=== PATIENT | male | born 1945 | race Caucasian/White ===

== ENCOUNTER 2017-08-27 16:48 | Inpatient (IN) | payer MEDICARE, OTHER ==
[~2017-08-27] VITALS: Ht 165.1 cm; Wt 56.2 kg
--- NOTE | 2017-08-27 17:06 | NUR ---
PT JAVED FROM [facility], PER REPORT, PT IS C/O DIFFUSE ABDOMINAL PAIN W/ NAUSEA AND DIARRHEA. 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 PT IS AAO, DENIES VOMITING. AWAITING MD VIRGEN.
--- NOTE | 2017-08-27 17:14 | NUR ---
DR GENTILE AT BEDSIDE FOR EVAL.
[2017-08-27] MEDS ORDERED: IV NS 0.9% 500 ML BAG IV ONE ×2 (17:30→18:30)
[2017-08-27] MEDS ORDERED: AMIN30LI4 PO (17:35)
[2017-08-27] MEDS ORDERED: ALFU10TA10 PO (17:35)
[2017-08-27] MEDS ORDERED: CELE200C PO (17:35)
[2017-08-27] MEDS ORDERED: DESI10TA3 PO (17:35)
[2017-08-27] MEDS ORDERED: ASPI81TA2 PO (17:35)
[2017-08-27] MEDS ORDERED: LORA2TAB PO (17:35)
[2017-08-27] MEDS ORDERED: BIMA2.5D5 EACHEYE (17:35)
[2017-08-27] MEDS ORDERED: ERGO50003 PO (17:35)
[2017-08-27] MEDS ORDERED: DIPH1TAB PO (17:35)
[2017-08-27] MEDS ORDERED: POLY15DR40 RIGHTEYE (17:35)
[2017-08-27] MEDS ORDERED: MULT-659 PO (17:35)
[2017-08-27] MEDS ORDERED: CALC-108 PO (17:35)
[2017-08-27] MEDS ORDERED: CETI-232 PO (17:35)
[2017-08-27] MEDS ORDERED: DIPH30CR TP (17:35)
[2017-08-27] MEDS ORDERED: FOLI1TAB16 PO (17:35)
[2017-08-27] MEDS ORDERED: LORA1TAB PO (17:35)
[2017-08-27] MEDS ORDERED: TRAM50TA2 PO (17:35)
[2017-08-27 18:02] LABS: BASOPHILS % (AUTO) 0.2 % (0.0-2.0); EOSINOPHILS % (AUTO) 0.1 % (0.0-6.0); HEMATOCRIT 30 % (39-51); HEMOGLOBIN 9.9 g/dL (13.5-17.5); LYMPHOCYTES # (AUTO) 1.8 /CMM (0.8-4.8); LYMPHOCYTES % (AUTO) 10.7 % (20.0-44.0); MEAN CORPUSCULAR HEMOGLOBIN 30 PG (26.0-33.0); MEAN CORPUSCULAR HGB CONC 33 g/dl (31.0-36.0); MEAN CORPUSCULAR VOLUME 90 fL (80-96); MONOCYTES # (AUTO) 0.7 /CMM (0.1-1.30); MONOCYTES % (AUTO) 3.9 % (2.0-12.0); NEUTROPHILS # (AUTO) 14.3 /CMM (1.8-8.9); NEUTROPHILS % (AUTO) 85.1 % (43.0-81.0); PLATELET COUNT (AUTO) 190 /CMM (150-450); RDW COEFFICIENT OF VARIATION 14.4 (11.5-15.0); RED BLOOD CELL COUNT(AUTO) 3.34 MIL/uL (4.5-6.0); WHITE BLOOD COUNT (AUTO) 16.8 K/uL (4.3-11.0)
[2017-08-27 18:12] LABS: CALCIUM, SERUM 7.3 mg/dL (8.5-10.1); CARBON DIOXIDE 24 mmol/L (21-32); CHLORIDE 105 mmol/L (98-107); GLUCOSE 126 mg/dL (74-106); POTASSIUM 3.8 mmol/L (3.5-5.1); SODIUM SERUM 133 mmol/L (136-145); UREA NITROGEN, BLOOD 44 mg/dL (7-18)
[2017-08-27 18:16] LABS: INR 1.33 (0.87-1.13); PROTHROMBIN TIME 13.8 SECS (9.5-12.7)
[2017-08-27 18:18] LABS: ALANINE AMINOTRANSFERASE 9 U/L (12-78); ALBUMIN 1.7 g/dL (3.4-5.0); ALKALINE PHOSPHATASE 58 U/L (46-116); ASPARTATE AMINOTRANSFERASE 24 U/L (15-37); BILIRUBIN,DIRECT 0.2 mg/dL (0.0-0.2); BILIRUBIN,TOTAL 0.6 mg/dL (0.2-1.0); TOTAL PROTEIN, SERUM 4.6 g/dL (6.4-8.2)
[2017-08-27] MEDS ORDERED: PANTOPRAZOLE 80 MG in IV NS 0.9% 500 ML IV ONE (18:30)
--- NOTE | 2017-08-27 18:32 | NUR ---
PT TO RADIOLOGY FOR ABDOMINAL CT SCAN VIA [facility].
[2017-08-27] MEDS ORDERED: LEVOFLOXACIN 750 MG /D5W 150ML 150 ML IV ONE ×2 (19:00→19:08)
[2017-08-27] MEDS ORDERED: METRONIDAZOLE 500MG/ NS 100ML 100 ML IV ONE ×2 (19:00→19:08)
--- NOTE | 2017-08-27 19:16 | NUR ---
CALLED [facility] [phone] .... DR[address] BRYANT IS [employer] PLANT MAINTENANCE CONSULTANT WILL BE PAGED.
[2017-08-27] MEDS ORDERED: TRAMADOL HCL 50 MG TABLET PO ONE (20:00)
[2017-08-27] MEDS ORDERED: TRAMADOL HCL 50 MG TABLET ONE (20:37)
--- NOTE | 2017-08-27 20:40 | NUR ---
REPORT GIVEN TO PEDRO. PT AWAITING TRANSFER TO FLOOR.
--- NOTE | 2017-08-27 20:45 | NUR ---
SHALA RN INITIAL NOTE RECEIVED PT VIA GURNEY. PT TRANSFERRED SAFELY TO BED. CAREGIVER AT BEDSIDE. A/O X3 AND ABLE TO VERBALIZE NEEDS. ORIENTED PT TO ROOM ENVIRONMENT. ON ROOM AIR AND SATURATING 99%. BREATHING EVEN, REGULAR AND UNLABORED. LUNGS, HEART AND BOWEL SOUNDS AUSCULTATED. TELE- SINUS TACH 108. FULL BODY ASSESSMENT PERFORMED. PT C/O 06/01 GENERALIZED PAIN. NPO EXCEPT MEDS. WILL CONTINUE TO MONITOR AND MANAGE PAIN WITH MEDS, REPOSITIONING AND REORIENTING PT. ORDERS RECEIVED PER ADMITTING DR.SORA BRYANT, NOTED AND CARRIED OUT. IV LEFT IJ #20 CLEAN, PATENT, INTACT AND RUNNING FLUIDS. WILL CONTINUE TO MONITOR.
[2017-08-27] MEDS ORDERED: MORPHINE SULFATE INJ 2 MG/ML DISP.SYRIN IM PRN (22:00)
[2017-08-27] MEDS ORDERED: ONDANSETRON HCL/PF 4 MG/2 ML VIAL IV PRN (22:00)
[2017-08-27] MEDS ORDERED: LEVOFLOXACIN 500 MG /D5W 100ML 500 MG in PREMIX 1 EA IV SCH (22:00)
[2017-08-27] MEDS: METRONIDAZOLE 500MG/ NS 100ML 500 MG in PREMIX 1 EA IV SCH (22:00)
[2017-08-27] MEDS ORDERED: ACETAMINOPHEN 325 MG TABLET ONE (22:42)
[2017-08-27] MEDS: ACETAMINOPHEN 325 MG TABLET PO PRN (22:43)
[2017-08-27] MEDS: IV NS 0.9% 1,000 ML IV PRN (22:44)
[2017-08-28] VITALS: BP 92/54
[2017-08-28] MEDS: ACETAMINOPHEN 325 MG TABLET PO PRN (00:09)
[2017-08-28] MEDS: IV NS 0.9% 1,000 ML IV PRN ×2 (00:38→14:21)
[2017-08-28] MEDS ORDERED: TRAMADOL HCL 50 MG TABLET ONE (02:42)
[2017-08-28] MEDS: TRAMADOL HCL 50 MG TABLET PO PRN ×3 (02:45→21:20)
[2017-08-28 04:00] VITALS: BP 124/72
[2017-08-28] MEDS ORDERED: METRONIDAZOLE 500MG/ NS 100ML 100 ML IV ONE (04:22)
--- NOTE | 2017-08-28 05:07 | NUR ---
SHALA RN NOTE 2330 -SPOKE WITH DR MIKAYLA BRYANT AND RECEIVED ORDER FOR CENTRAL LINE INSERTION D/T NOT BEING ABLE TO INSERT A MIDLINE. CONSENT OBTAINED BY JAS THOMPSON(POA) WHO'S AT BEDSIDE WITH PT. CENTRAL LINE SUCCESSFULLY INSERTED IN THE R FEMORAL TLC. PT TOLERATED PROCEDURE WELL. 0030 - PT BP 85/55, 89/61. PUT PT IN [place] WITHOUT ANY CHANGE. SPOKE WITH DR. MIKAYLA BRYANT WHO ORDERED 1 LITER NS BOLUS X1 NOW. 0130 S/P IV BOLUS BP 89/52, 92/55, PT KEPT IN [place]. 0300 BP 96/56 0315 TRAMADOL 50MG GIVEN PER PT REQUEST. PAIN LEVEL 07/02. 0400 BP 124/72 ON LEFT THIGH. 0500 BP 126/63 ON LEFT THIGH WILL CONTINUE TO MONITOR PT.
[2017-08-28] MEDS ORDERED: MORPHINE SULFATE INJ 2 MG/ML DISP.SYRIN ONE (05:36)
[2017-08-28] MEDS: METRONIDAZOLE 500MG/ NS 100ML 500 MG in PREMIX 1 EA IV SCH ×3 (05:38→18:41)
[2017-08-28 06:25] LABS: HEMATOCRIT 23 % (39-51); HEMOGLOBIN 7.6 g/dL (13.5-17.5); LYMPHOCYTES # (AUTO) 1.1 /CMM (0.8-4.8); LYMPHOCYTES % (AUTO) 6.6 % (20.0-44.0); MEAN CORPUSCULAR HEMOGLOBIN 30 PG (26.0-33.0); MEAN CORPUSCULAR HGB CONC 34 g/dl (31.0-36.0); MEAN CORPUSCULAR VOLUME 90 fL (80-96); MONOCYTES # (AUTO) 0.3 /CMM (0.1-1.30); MONOCYTES % (AUTO) 1.8 % (2.0-12.0); NEUTROPHILS # (AUTO) 15.3 /CMM (1.8-8.9); NEUTROPHILS % (AUTO) 91.6 % (43.0-81.0); PLATELET COUNT (AUTO) 160 /CMM (150-450); RDW COEFFICIENT OF VARIATION 15.7 (11.5-15.0); RED BLOOD CELL COUNT(AUTO) 2.51 MIL/uL (4.5-6.0); WHITE BLOOD COUNT (AUTO) 16.7 K/uL (4.3-11.0)
[2017-08-28 06:37] LABS: CALCIUM, SERUM 6.5 mg/dL (8.5-10.1); CARBON DIOXIDE 20 mmol/L (21-32); CHLORIDE 110 mmol/L (98-107); CREATININE 0.8 mg/dL (0.6-1.3); GLUCOSE 94 mg/dL (74-106); POTASSIUM 3.5 mmol/L (3.5-5.1); SODIUM SERUM 137 mmol/L (136-145); UREA NITROGEN, BLOOD 36 mg/dL (7-18)
--- NOTE | 2017-08-28 07:37 | NUR ---
RN CLOSING NOTE PT REMAINS IN NO ACUTE DISTRESS IN BED. PT DID NOT HAVE ANY SIGNIFICANT CHANGE IN CONDITION DURING SHIFT. PT WAS C/O GENERALIZED PAIN @ 8/10. PAIN MANAGEMENT INITIATED AND PT HAS DECREASED TO 3/10. ALL NEEDS ATTENDED TO, ALL SAFETY MEASURES IN PLACE, AND PT KEPT CLEAN AND DRY. WILL ENDORSE TO AM RN FOR MEDHAT.
[2017-08-28 08:00] VITALS: BP 125/66
--- NOTE | 2017-08-28 08:00 | NUR ---
RN SHALA INITIAL NOTE RECEIVED PATIENT A/O X3 AND ABLE TO VERBALIZE NEEDS. PT ON ROOM AIR AND SATURATING 98%. BREATHING EVEN, REGULAR AND UNLABORED. LUNGS, HEART AND BOWEL SOUNDS AUSCULTATED. TELE- SINUS RHYTHM, FULL BODY ASSESSMENT PERFORMED. PT C/O 08/02 GENERALIZED PAIN ABDOMINAL DISTENTION NOTED . NPO EXCEPT MEDS. RN WILL CONTINUE TO MONITOR THROUGHOUT THE DAY ALONG WITH MANAGING PAIN .
[2017-08-28] MEDS ORDERED: diphenhydrAMINE HCL/ZINC ACET CREAM 28.3 GM TUBE TP PRN (09:30)
[2017-08-28] MEDS ORDERED: DIPHENOXYLATE HCL/ATROP SULF 1 UDTAB TABLET PO PRN (09:30)
[2017-08-28] MEDS ORDERED: TRAMADOL HCL 50 MG TABLET PO PRN (09:30)
--- NOTE | 2017-08-28 09:30 | NUR ---
RN NOTE DR.SORA BRYANT [place] PER FAMILY REQUEST, REQUESTING UPDATE AND PLAN OF CARE RN EXPLAINED THE PATIENTS PLAN OF CARE AWAITING RETURN PHONE CALL
[2017-08-28] MEDS ORDERED: ASPIRIN 81 MG TAB.CHEW PO SCH (09:35)
[2017-08-28] MEDS: PROSOURCE / PROSTAT (PYXIS) 30 ML UDC PO SCH ×2 (09:39→18:40)
[2017-08-28] MEDS ORDERED: CELECOXIB 100 MG CAPSULE PO SCH (09:40)
[2017-08-28] MEDS: MULTIVITAMINS,THERAGRAN 1 UDTAB TABLET PO SCH (09:43)
[2017-08-28] MEDS: cetrizine 10 MG TABLET PO SCH (10:03)
[2017-08-28] MEDS: CALCIUM CARB 600MG /VIT D 1 EACH TABLET PO SCH (10:03)
[2017-08-28] MEDS: LORAZEPAM 1 MG TABLET PO PRN (10:04)
[2017-08-28] MEDS: MORPHINE SULFATE INJ 2 MG/ML DISP.SYRIN IV PRN ×3 (10:05→18:42)
[2017-08-28] MEDS: FOLIC ACID 1 MG TABLET PO SCH (10:06)
[2017-08-28] MEDS: POLYVINYL ALCOHOL 15 ML BOTTLE RIGHTEYE SCH ×2 (10:07→18:41)
--- NOTE | 2017-08-28 10:30 | NUR ---
RN NOTE DR.SORA ANNETTE RAHMAN PER FAMILY REQUEST X2 , REQUESTING UPDATE AND PLAN OF CARE RN EXPLAINED THE PATIENTS PLAN OF CARE AWAITING RETURN PHONE CALL
[2017-08-28 12:00] VITALS: BP 129/65
[2017-08-28] MEDS ORDERED: LEVOFLOXACIN 500 MG /D5W 100ML 500 MG in PREMIX 1 EA IV SCH (12:00)
--- NOTE | 2017-08-28 12:00 | NUR ---
RN NOTE PATIENT HAD NOTICEABLE BLOODY STOOL MD HAINES NOTIFIED , ACKNOWLEDGED LOWER GI BLEED PRN TRANSFUSION IF NEED RN WILL CONTINUE TO FOLLOW
--- NOTE | 2017-08-28 14:23 | NUR ---
RN NOTE COMPUTER SCANNER NOT WORKING PATIENT PAIN MEDICATION ADMINISTERED DUE TO PAIN LEVEL AT A 9-10 GENERALIZED. MEDICATION GIVEN AND FLUSHED WITH 5 CC OF NORMAL SALINE
[2017-08-28 14:27] LABS: HEMOGLOBIN 7.7 g/dL (13.5-17.5)
[2017-08-28 16:00] VITALS: BP 117/65
[2017-08-28] MEDS: PANTOPRAZOLE 40 MG VIAL IV SCH (18:41)
--- NOTE | 2017-08-28 18:55 | NUR ---
RN CLOSING SHALA NOTE PT REMAINS IN NO ACUTE DISTRESS NO SOB NOTED .NO HAVE ANY SIGNIFICANT CHANGE IN CONDITION DURING SHIFT. PT C/O GENERALIZED PAIN @ 9-09/01. PAIN MANAGEMENT FOLLOWED THROUGHOUT THE DAY VIKAS EFFECTIVENESS. ALL NEEDS ATTENDED TO, ALL SAFETY MEASURES IN PLACE, PT KEPT CLEAN AND DRY IN CONTINENT DIAPER CHANGED X 3. WILL ENDORSE TO PM RN FOR CONTINUATION OF CARE.
[2017-08-28 20:00] VITALS: BP 114/59
--- NOTE | 2017-08-28 20:00 | NUR ---
SHALA RN NOTES: RECEIVED PT. IN BED ALERT AND ORIENTED X 3 RESPONSIVE. ABLE TO MAKE NEEDS KNOWN. ON TELE MONITOR ST 112. PATIENT ON RA W/ O2 SAT 95%. NO SOB NOTED. NOT IN ANY ACUTE DISTRESS. BREATHING EVEN AND UNLABORED. C/O PAIN GENERALIZED PAIN W/ PRN MEDS GIVEN. W/ IVF NS AT 100 CC/ HR INFUSING WELL W/ NO S/S OF INFECTION OR INFILTRATION NOTED. ALL NEEDS ATTENDED. PATIENT REMAINS ON NPO EXCEPT MEDS. DUE MEDS GIVEN ORDERED. TURNED AND REPOSTIONED Q 2 HRS. CALL LIGHT W/ REACH. SAFETY PRECAUTIONS MAINTAINED. WILL CONTINUE TO MONITOR.
[2017-08-28] MEDS: DESIPRAMINE HCL 10 MG TABLET PO SCH (21:10)
[2017-08-28] MEDS: LEVOFLOXACIN 500 MG /D5W 100ML 500 MG in PREMIX 1 EA IV SCH (21:10)
[2017-08-28] MEDS: LATANOPROST EYE DROP 0.005% 2.5 ML BOTTLE EACHEYE SCH (21:11)
--- NOTE | 2017-08-28 21:32 | NUR ---
patient resides at [facility] [phone], she is alert, requires assistance with adl's. Current plan is to dc back to SNF once discharge. Addendum: 08/28/17 at 2133 by KOLE BONILLA RN Amended: Links added.
[2017-08-28] MEDS ORDERED: BIMATOPROST 2.5 ML DROPS OP SCH (22:00)
[2017-08-29] VITALS (7 sets, daily range): BP systolic 81–124; BP diastolic 50–66
--- NOTE | 2017-08-29 | NUR ---
SHALA RN NOTES: PATIENT RESTING IN BED COMFORTABLE. NO SOB NOTED. NOT IN ANY ACUTE DISTRESS NOTED. CALL LIGHT W/ IN REACH. COUSIN ELAINA CALLED AND UNDATED PT.'S CURRENT CONDITION. WILL CONTINUE TO MONITOR. V/S STABLE AFEBRILE.
[2017-08-29] MEDS: METRONIDAZOLE 500MG/ NS 100ML 500 MG in PREMIX 1 EA IV SCH ×4 (00:35→18:16)
[2017-08-29] MEDS: MORPHINE SULFATE INJ 2 MG/ML DISP.SYRIN IV PRN ×3 (05:18→20:21)
[2017-08-29] MEDS: IV NS 0.9% 1,000 ML IV PRN ×2 (05:37→18:17)
--- NOTE | 2017-08-29 06:34 | NUR ---
SHALA RN NOTES: PATIENT IN BED W/ NO SOB OR ANY ACUTE DISTRESS NOTED. REMAINS NPO EXCEPT MEDS. NO ACTIVE BLEEDING NOTED. V/S STABLE. AFEBRILE. REMAIN ON SALINE HYDRATION. ENDORSE TO MORNING SHIFT FOR CONTINUITY OF CARE.
[2017-08-29 07:33] LABS: HEMATOCRIT 25 % (39-51); HEMOGLOBIN 8.2 g/dL (13.5-17.5); LYMPHOCYTES # (AUTO) 1.3 /CMM (0.8-4.8); LYMPHOCYTES % (AUTO) 6.7 % (20.0-44.0); MEAN CORPUSCULAR HEMOGLOBIN 30 PG (26.0-33.0); MEAN CORPUSCULAR HGB CONC 33 g/dl (31.0-36.0); MEAN CORPUSCULAR VOLUME 90 fL (80-96); MONOCYTES # (AUTO) 0.4 /CMM (0.1-1.30); MONOCYTES % (AUTO) 1.9 % (2.0-12.0); NEUTROPHILS # (AUTO) 18.1 /CMM (1.8-8.9); NEUTROPHILS % (AUTO) 91.4 % (43.0-81.0); PLATELET COUNT (AUTO) 168 /CMM (150-450); RDW COEFFICIENT OF VARIATION 16.5 (11.5-15.0); RED BLOOD CELL COUNT(AUTO) 2.74 MIL/uL (4.5-6.0); WHITE BLOOD COUNT (AUTO) 19.8 K/uL (4.3-11.0)
[2017-08-29 07:44] LABS: INR 1.92 (0.87-1.13); PROTHROMBIN TIME 20.1 SECS (9.5-12.7)
[2017-08-29 07:55] LABS: CALCIUM, SERUM 6.7 mg/dL (8.5-10.1); CARBON DIOXIDE 18 mmol/L (21-32); CHLORIDE 113 mmol/L (98-107); CREATININE 0.8 mg/dL (0.6-1.3); GLUCOSE 79 mg/dL (74-106); MAGNESIUM 1.5 mg/dL (1.8-2.4); PHOSPHORUS 2.6 mg/dL (2.5-4.9); POTASSIUM 3.6 mmol/L (3.5-5.1); SODIUM SERUM 142 mmol/L (136-145); UREA NITROGEN, BLOOD 33 mg/dL (7-18)
[2017-08-29] MEDS ORDERED: ERGOCALCIFEROL (VITAMIN D 2) 50,000 UNIT CAPSULE PO SCH (09:00)
[2017-08-29] MEDS ORDERED: ALFUZOSIN 10 MG PO SCH (09:00)
[2017-08-29] MEDS: PANTOPRAZOLE 40 MG VIAL IV SCH ×2 (09:14→17:19)
[2017-08-29] MEDS: CALCIUM CARB 600MG /VIT D 1 EACH TABLET PO SCH (09:15)
[2017-08-29] MEDS: FOLIC ACID 1 MG TABLET PO SCH (09:15)
[2017-08-29] MEDS: cetrizine 10 MG TABLET PO SCH (09:15)
[2017-08-29] MEDS: MULTIVITAMINS,THERAGRAN 1 UDTAB TABLET PO SCH (09:15)
[2017-08-29] MEDS: POLYVINYL ALCOHOL 15 ML BOTTLE RIGHTEYE SCH ×2 (09:15→17:19)
[2017-08-29] MEDS: PROSOURCE / PROSTAT (PYXIS) 30 ML UDC PO SCH ×2 (09:16→17:19)
[2017-08-29] MEDS: ACETAMINOPHEN 325 MG TABLET PO PRN (12:21)
--- NOTE | 2017-08-29 14:00 | NUR ---
RN CLOSING NOTE REPORT GIVEN TO NURSE RUSH FOR TRANSFER OF CARE
[2017-08-29] MEDS: Magnesium 1GM/D5W 100ML PREMIX 100 ML IV SCH ×2 (14:16→15:40)
--- NOTE | 2017-08-29 15:03 | NUR ---
RN NOTES RECEIVED PT FROM KAIN IN STABLE CONDITION. A&OX3, ON ROOM AIR NO SOB OR DISTRESS NOTED, SINUS TACH ON THE MONITOR HR 110. R FEMORAL CENTRAL LINE DRESSING DRY AND INTACT WITH IVF RUNNING AT 100ML/HR. BED LOCKED AND IN LOWEST POSITION, CALL LIGHT WITHIN REACH, WILL CONT TO MONITOR.
--- NOTE | 2017-08-29 18:47 | NUR ---
RN NOTES PT RESTING IN BED WITH CAREGIVER AT BEDSIDE. NO SOB OR DISTRESS NOTED. IV ANITBOTICS RUNNING. NO SIGNIFICANT CHANGES THROUGHOUT THE SHIFT. PT CLEANED, TURNED AND REPOSITIONED. BED LOCKED AND IN LOWEST POSITION, CALL LIGHT WITHIN REACH, SIDE RAILS UPX3, WILL ENDORSE TO ONCOMING SHIFT.
--- NOTE | 2017-08-29 21:08 | NUR ---
RN NOTES RECEIVED PATIENT AWAKE IN BED WITH SITTER AT BEDSIDE. ALERT AND ORIENTED. VERBALLY ABLE TO COMMUNICATE NEEDS. COMPLAINT OF ABDOMINAL PAIN 08/02, MORPHINE 2MG ADMINISTERED WITH NO ADVERSE EFFECT NOTED. NON AMBULATORY, ON ROOM AIR. RIGHT FEMORAL CENTRA LINE PATENT WITH NS @100ML/HR TOLERATING WELL. NO RESPIRATORY DISTRESS NOTED. INCONTINENT OF BOWEL AND BLADDER FUNCTION. WILL CONTINUE TO MONITOR.
[2017-08-29] MEDS: LEVOFLOXACIN 500 MG /D5W 100ML 500 MG in PREMIX 1 EA IV SCH (22:47)
[2017-08-29] MEDS: DESIPRAMINE HCL 10 MG TABLET PO SCH (22:48)
[2017-08-29] MEDS: LATANOPROST EYE DROP 0.005% 2.5 ML BOTTLE EACHEYE SCH (22:49)
[2017-08-29] MEDS: LORAZEPAM 1 MG TABLET PO PRN (22:54)
[2017-08-30] VITALS: BP 103/65
[2017-08-30] MEDS: METRONIDAZOLE 500MG/ NS 100ML 500 MG in PREMIX 1 EA IV SCH ×5 (01:36→23:59)
[2017-08-30 04:00] VITALS: BP 103/62
[2017-08-30] MEDS: IV NS 0.9% 1,000 ML IV PRN ×2 (06:26→17:55)
--- NOTE | 2017-08-30 06:39 | NUR ---
RN CLOSING NOTES PATIENT IN BED WITH RESPIRATORY DISTRESS NOTED. BREATHING EVEN UNLABORED. MORPHINE SULFATE ADMINISTERED AT 2100 FOR COMPLAINT OF ABDOMINAL PAIN.ATIVAN FOR ANXIETY GIVEN AT 0000 FOR ANXIETY VERBALIZED. NOTED WITH GROSS HEMATURIA IN STOOL AT 0400. WILL ENDORSE TO AM SHIFT FOR CONTINUITY OF CARE.
[2017-08-30 07:39] LABS: BASOPHILS % (AUTO) 0.1 % (0.0-2.0); HEMATOCRIT 25 % (39-51); HEMOGLOBIN 8.1 g/dL (13.5-17.5); LYMPHOCYTES # (AUTO) 1.5 /CMM (0.8-4.8); LYMPHOCYTES % (AUTO) 7.6 % (20.0-44.0); MEAN CORPUSCULAR HEMOGLOBIN 29 PG (26.0-33.0); MEAN CORPUSCULAR HGB CONC 32 g/dl (31.0-36.0); MEAN CORPUSCULAR VOLUME 90 fL (80-96); MONOCYTES # (AUTO) 0.3 /CMM (0.1-1.30); MONOCYTES % (AUTO) 1.3 % (2.0-12.0); NEUTROPHILS # (AUTO) 17.6 /CMM (1.8-8.9); PLATELET COUNT (AUTO) 181 /CMM (150-450); RDW COEFFICIENT OF VARIATION 17.2 (11.5-15.0); RED BLOOD CELL COUNT(AUTO) 2.77 MIL/uL (4.5-6.0); WHITE BLOOD COUNT (AUTO) 19.3 K/uL (4.3-11.0)
[2017-08-30 07:55] LABS: ALANINE AMINOTRANSFERASE 9 U/L (12-78); ALKALINE PHOSPHATASE 53 U/L (46-116); ASPARTATE AMINOTRANSFERASE 15 U/L (15-37); BILIRUBIN,TOTAL 0.8 mg/dL (0.2-1.0); CALCIUM, SERUM 6.9 mg/dL (8.5-10.1); CARBON DIOXIDE 15 mmol/L (21-32); CHLORIDE 117 mmol/L (98-107); CREATININE 0.9 mg/dL (0.6-1.3); GLUCOSE 84 mg/dL (74-106); MAGNESIUM 1.9 mg/dL (1.8-2.4); PHOSPHORUS 2.6 mg/dL (2.5-4.9); POTASSIUM 3.3 mmol/L (3.5-5.1); SODIUM SERUM 145 mmol/L (136-145); TOTAL PROTEIN, SERUM 3.8 g/dL (6.4-8.2); UREA NITROGEN, BLOOD 33 mg/dL (7-18)
--- NOTE | 2017-08-30 07:58 | NUR ---
RN NOTES RECEIVED PT FROM COIN WRAPPING MACHINE OPERATOR, A&0X3, ON ROOM AIR, ST ON THE TELE MONITOR. R FEMORAL CENTRAL LINE DRESSING DRY AND INTACT IVF RUNNING AT 100ML/HR. NO SOB OR DISTRESS NOTED. CALL LIGHT WITHIN REACH, SIDE RAILS UPX3 BED LOCKED AND IN LOWEST POSITION, WILL CONT TO MONITOR.
[2017-08-30 08:00] VITALS: BP 99/60
[2017-08-30 08:24] LABS: ALBUMIN 1.3 g/dL (3.4-5.0)
[2017-08-30 08:40] LABS: LYMPHOCYTES % (MANUAL) 10 % (16-48); MONOCYTES % (MANUAL) 1 % (0-11.0); NEUTROPHILS % (MANUAL) 89 (42-76)
[2017-08-30] MEDS ORDERED: ALFUZOSIN 10 MG PO SCH ×2 (09:00)
[2017-08-30] MEDS: cetrizine 10 MG TABLET PO SCH (09:01)
[2017-08-30] MEDS: MULTIVITAMINS,THERAGRAN 1 UDTAB TABLET PO SCH (09:01)
[2017-08-30] MEDS: FOLIC ACID 1 MG TABLET PO SCH (09:01)
[2017-08-30] MEDS: CALCIUM CARB 600MG /VIT D 1 EACH TABLET PO SCH (09:01)
[2017-08-30] MEDS: PANTOPRAZOLE 40 MG VIAL IV SCH ×2 (09:01→16:49)
[2017-08-30] MEDS: POLYVINYL ALCOHOL 15 ML BOTTLE RIGHTEYE SCH ×2 (09:04→16:50)
[2017-08-30] MEDS: PROSOURCE / PROSTAT (PYXIS) 30 ML UDC PO SCH ×2 (09:04→16:48)
[2017-08-30 12:00] VITALS: BP 89/55
[2017-08-30] MEDS ORDERED: POTASSIUM CHLORIDE 20 MEQ TAB.PRT.SR PO SCH (13:00)
--- NOTE | 2017-08-30 14:05 | NUR ---
RN NOTES STOOL SPECIMEN ORDERED PER DR CRUZ, PT HAS NOT HAD BOWEL MOVEMENT ON MY SHIFT YET. 3 LOOSE STOOLS LAST NIGHT.
[2017-08-30 16:00] VITALS: BP 90/61
--- NOTE | 2017-08-30 18:43 | NUR ---
RN NOTES PT RESTING IN BED NO SOB OR DISTRESS NOTED. 1 SMALL LOOSE STOOL THROUGHOUT THE SHIFT, RECTAL TUBE NOT INSERTED. STOOL SENT TO LAB. NO SIGNIFICANT CHANGES THROUGHOUT THE SHIFT. BED LOCKED AND IN LOWEST POSITION, CALL LIGHT WITHIN REACH, WILL ENDORSE TO ONCOMING SHIFT.
--- NOTE | 2017-08-30 19:35 | NUR ---
RN NOTES RECEIVED PATIENT AWAKE ALERT ORIENTED X 3 ABLE TO MAKE KNOWN NEEDS. NO ACUTE RESP DISTRESS SATING 98% IN RA. DENIES PAIN ON ABDOMEN BUT COMPLAINING OF PAIN ON HIS LEGS AND HEELS BUT PT REFUSED TO TAKE PRN MEDICINE. PER PATIENT HIS NOT TAKING PAIN MEDICINE AND HE WILL BE FINE. ST ON TELE MONITOR HR 117. IV SITE ON RIGHT FEMORAL RUNNING WITH NS @ 100 CC/HR AND LIJ G20 SL INTACT AND PATENT. SKIN CARE PROVIDED. MOTIVATED TO BE CHANGE POSITION. CALL LIGHT KEPT WITHIN EASY REACH REMINDED TO USED WHEN NEEDED. KEPT CLEAN AND DRY WILL CONTINUE TO MONITOR.
[2017-08-30 20:00] VITALS: BP 98/62
[2017-08-30] MEDS: LEVOFLOXACIN 500 MG /D5W 100ML 500 MG in PREMIX 1 EA IV SCH (21:04)
[2017-08-30] MEDS: DESIPRAMINE HCL 10 MG TABLET PO SCH (21:04)
[2017-08-30] MEDS: LORAZEPAM 1 MG TABLET PO PRN (21:10)
[2017-08-30] MEDS: LATANOPROST EYE DROP 0.005% 2.5 ML BOTTLE EACHEYE SCH (21:13)
[2017-08-31] VITALS: BP 116/66
[2017-08-31 04:00] VITALS: BP 99/50
[2017-08-31] MEDS: METRONIDAZOLE 500MG/ NS 100ML 500 MG in PREMIX 1 EA IV SCH ×3 (06:21→17:03)
[2017-08-31 06:37] LABS: BASOPHILS % (AUTO) 0.1 % (0.0-2.0); HEMATOCRIT 27 % (39-51); HEMOGLOBIN 8.8 g/dL (13.5-17.5); LYMPHOCYTES # (AUTO) 1.1 /CMM (0.8-4.8); LYMPHOCYTES % (AUTO) 5.1 % (20.0-44.0); MEAN CORPUSCULAR HEMOGLOBIN 30 PG (26.0-33.0); MEAN CORPUSCULAR HGB CONC 33 g/dl (31.0-36.0); MEAN CORPUSCULAR VOLUME 90 fL (80-96); MONOCYTES # (AUTO) 0.5 /CMM (0.1-1.30); MONOCYTES % (AUTO) 2.4 % (2.0-12.0); NEUTROPHILS # (AUTO) 20.2 /CMM (1.8-8.9); NEUTROPHILS % (AUTO) 92.4 % (43.0-81.0); PLATELET COUNT (AUTO) 230 /CMM (150-450); RDW COEFFICIENT OF VARIATION 18.1 (11.5-15.0); RED BLOOD CELL COUNT(AUTO) 2.97 MIL/uL (4.5-6.0); WHITE BLOOD COUNT (AUTO) 21.8 K/uL (4.3-11.0)
--- NOTE | 2017-08-31 06:58 | NUR ---
RN NOTES PT ASLEEP WELL ON BED. BREATHING EVEN AND UNLABORED. SKIN CARE PROVIDED PHOTO TAKEN. AFEBRILE. COMPLAINING OF PAIN AT THE BACK AND ABDOMEN . NON PHARMACOLOGICAL RENDERED HELPS FOR AWHILE OFFERED PRN PAIN MEDICINE BUT PT REFUSED RISK AND BENEFITS EXPLAINED PT IS AOX 3 ABLE TO MAKE DECISION TO HIMSELF. STILL WAITING FOR DONNA ONEIL TO SIGNED CONSENT FOR COLONOSCOPY. PER DONNA SHE WILL COME ON THURSDAY TO SIGN CONSENT. KEPT PT CLEAN AND DRY. ALL NEEDS ATTENDED. WILL ENDORSED CONTINUITY OF CARE TO AM NURSE.
[2017-08-31 07:00] LABS: ALANINE AMINOTRANSFERASE 9 U/L (12-78); ALKALINE PHOSPHATASE 99 U/L (46-116); ASPARTATE AMINOTRANSFERASE 19 U/L (15-37); BILIRUBIN,TOTAL 0.9 mg/dL (0.2-1.0); CALCIUM, SERUM 7.1 mg/dL (8.5-10.1); CARBON DIOXIDE 15 mmol/L (21-32); CHLORIDE 118 mmol/L (98-107); CREATININE 1.1 mg/dL (0.6-1.3); GLUCOSE 94 mg/dL (74-106); MAGNESIUM 1.9 mg/dL (1.8-2.4); PHOSPHORUS 2.4 mg/dL (2.5-4.9); POTASSIUM 3.4 mmol/L (3.5-5.1); SODIUM SERUM 148 mmol/L (136-145); TOTAL PROTEIN, SERUM 3.9 g/dL (6.4-8.2); UREA NITROGEN, BLOOD 34 mg/dL (7-18)
[2017-08-31 07:01] LABS: ALBUMIN 1.3 g/dL (3.4-5.0)
[2017-08-31 08:00] VITALS: BP_SYST 149; BP_SYST 98; BP_DIAS 131; BP_DIAS 44
[2017-08-31] MEDS: PANTOPRAZOLE 40 MG VIAL IV SCH ×2 (08:18→17:03)
[2017-08-31] MEDS: PROSOURCE / PROSTAT (PYXIS) 30 ML UDC PO SCH ×3 (08:18→17:04)
[2017-08-31] MEDS: CALCIUM CARB 600MG /VIT D 1 EACH TABLET PO SCH ×2 (08:18→08:32)
[2017-08-31] MEDS: cetrizine 10 MG TABLET PO SCH ×2 (08:19→08:32)
[2017-08-31] MEDS: MULTIVITAMINS,THERAGRAN 1 UDTAB TABLET PO SCH ×2 (08:19→08:32)
[2017-08-31] MEDS: FOLIC ACID 1 MG TABLET PO SCH ×2 (08:19→08:32)
[2017-08-31] MEDS: POLYVINYL ALCOHOL 15 ML BOTTLE RIGHTEYE SCH ×2 (08:20→17:05)
[2017-08-31] MEDS ORDERED: POTASSIUM CHLORIDE 20 MEQ TAB.PRT.SR PO SCH (09:00)
[2017-08-31] MEDS: VANCOMYCIN HCL 125 MG/2.5 ML ORAL.SUSP PO SCH ×4 (09:44→21:17)
[2017-08-31] MEDS: IV NS 0.9% 1,000 ML IV PRN (10:38)
[2017-08-31 10:42] LABS: BAND % (MANUAL) 14 % (0.0-5.0); LYMPHOCYTES % (MANUAL) 1 % (16-48); MONOCYTES % (MANUAL) 3 % (0-11.0); NEUTROPHILS % (MANUAL) 82 (42-76)
[2017-08-31] MEDS: POTASSIUM CHLORIDE 20 MEQ POWDER PACKET PO SCH (10:51)
[2017-08-31 12:00] VITALS: BP 92/55
[2017-08-31] MEDS ORDERED: PEG 3350/NA SULF,BICARB,CL/KCL 4,000 ML BOTTLE PO ONE (13:00)
--- NOTE | 2017-08-31 13:03 | NUR ---
CHICKEN AND FISH CLEANER NOTE RCVD CALL FROM LAB. PT + FOR C.DIF. SOON, CRN INFORMED TO CHANGE PT'S ROOM.
--- NOTE | 2017-08-31 15:23 | NUR ---
FRONT FACER NOTE PT NOT VOIDING DESPITE IVF INFUSING AND PO INTAKE OF GOLYTELY. PT DENIES ANY PAIN OVER BLADDER AREA, BLADDER APPEARS TO BE DISTENDED. BLADDER US DONE. PT RETAINING OVER [address] BARAJAS PAGED AND RCVD ORDER FOR BURGOS INSERTION. BURGOS INSERTED TEA COLORED URINE OUTPUT. WILL CONTINUE TO MONITOR.
[2017-08-31] MEDS ORDERED: NEUTRA PHOS 1 POWD.PACKET NG ONE (15:30)
[2017-08-31 16:00] VITALS: BP 151/82
[2017-08-31] MEDS ORDERED: MAGNESIUM CITRATE 296 ML BOTTLE PO PRN (19:00)
--- NOTE | 2017-08-31 19:24 | NUR ---
WINE CELLAR STOCK CLERK NOTE PT REMAINS STABLE, UNABLE TO SIGN CONSENT BUT VERBALIZED CONSENT TO AMBULANCE MECHANIC RN WELL MYSELF. CONSENT FOR COLONOSCOPY WITNESSED BY 2 RNs. PT ALERT AND AWAKE OF PROCEDURE AND WANTS TO PROCEED. BED IN LOW AND LOCKED POSITION. CALL LIGHT WITHIN REACH. PT'S CARE ENDORSED TO AMBULANCE MECHANIC RN. SPOKE WITH PT'S COUSIN WHO WILL COME TOMORROW FOR PROCEDURE IF NEEDED SHE CAN SIGN CONSENT ON BEHALF OF PT PER PT'S REQUEST.
--- NOTE | 2017-08-31 19:30 | NUR ---
RN NOTES RECEIVED PATIENT IN BED, AWAKE ALERT ORIENTED X 3, ABLE TO MAKE KNOWN NEEDS. NO ACUTE RESPIRATORY DISTRESS NOTED, SATTING 97% ON ROOM AIR. ON TELE MONITOR HR 116. IV SITE ON RIGHT FEMORAL, TLC, RUNNING WITH NS @ 100 CC/HR, DRESSING SOILED, WILL CHANGE. ALSO NOTED WITH LIJ G20 SL INTACT AND PATENT. SKIN CARE PROVIDED. PATIENT TEACHING PROVIDED REGARDING BOWEL PREP. PATIENT INSTRUCTED/ASSISTED TO DRINK BOWEL PREP, WILL MAKE SURE PATIENT FINISHES BOWEL PREP FOR COLONOSCOPY IN AM. CONSENT VERBALIZED BY PATIENT, WITNESSED BY MYSELF AND KELBY YANEZ. RECTAL TUBE PATENT AND INTACT, DRAINING LIQUID BROWN STOOL WITH SEDIMENTS. BURGOS CATHETER PATENT AND INTACT, DRAINING TEA COLORED URINE. CALL LIGHT LEFT WITHIN EASY REACH, BED IN LOWEST AND LOCKED POSITION.
--- NOTE | 2017-08-31 19:35 | NUR ---
RN NOTES CHARGE NURSE NOTIFIED REGARDING THE NEED TO ISOLATE PATIENT DUE STOOL FOR CDIFF RESULTS, POSITIVE. PATIENT TRANSFERRED TO ROOM 118-1, TOLERATED PROCEDURE WELL
[2017-08-31 20:00] VITALS: BP 133/71
[2017-08-31] MEDS: DESIPRAMINE HCL 10 MG TABLET PO SCH (21:18)
[2017-08-31] MEDS: LATANOPROST EYE DROP 0.005% 2.5 ML BOTTLE EACHEYE SCH (21:23)
[2017-09-01] VITALS (48 sets, daily range): BP systolic 36–133; BP diastolic 14–90
--- NOTE | 2017-09-01 | NUR ---
RN NOTES PATIENT COMPLETED BOWEL PREP, SOME SEDIMENTS STILL NOTED IN STOOL OUTPUT VIA RECTAL TUBE. OFFERED THE PATIENT MAG CITRATE, PATIENT STRONGLY REFUSES. WILL MONITOR STOOL OUTPUT
[2017-09-01] MEDS: IV NS 0.9% 1,000 ML IV PRN (00:10)
[2017-09-01] MEDS: METRONIDAZOLE 500MG/ NS 100ML 500 MG in PREMIX 1 EA IV SCH ×4 (00:11→17:24)
--- NOTE | 2017-09-01 06:00 | NUR ---
RN NOTES PATIENT VERBALIZES CONSENT TO ANESTHESIA AND BLOOD TRANSFUSION. PATIENT UNABLE TO SIGN DUE TO CONTRACTURES, CONSENT WITNESSED WITH KIKI YANEZ.
--- NOTE | 2017-09-01 06:51 | NUR ---
RN CLOSING NOTES PATIENT RESTING COMFORTABLY IN BED, BOWEL PREP COMPLETE, ALL CONSENTS FOR COLONOSCOPY SIGNED AND IN CHART, STOOL OUTPUT CLEAR. WILL ENDORSE PATIENT TO THE AM SHIFT NURSE FOR MEDHAT
--- NOTE | 2017-09-01 07:08 | NUR ---
RN NOTES RECEIVED PATIENT ON BED ,AWAKE ALERT ORIENTED X 3, RESPIRATION EVEN AND UNLABORED, NO SOB NOTED, ON TELE MONITOR HR 117. IV SITE ON RIGHT FEMORAL TLC CLEAN , DRY, INTACT , NS @ 100 CC/HR RUNNING WELL . L IJ G20 SL INTACT AND PATENT. SKIN CARE PROVIDED. RECTAL TUBE PATENT AND INTACT, DRAINING LIQUID BROWN STOOL , BURGOS CATHETER PATENT AND INTACT, DRAINING TEA COLORED URINE. PT IS NPO THIS AM FOR COLONOSCOPY, BED LOCKED AND IN LOWEST POSITION , CALL LIGHT WITHIN EASY REACH, CONTINUE TO MONITOR PT CLSOELY
[2017-09-01 07:18] LABS: BASOPHILS % (AUTO) 0.1 % (0.0-2.0); HEMATOCRIT 25 % (39-51); HEMOGLOBIN 7.9 g/dL (13.5-17.5); LYMPHOCYTES % (AUTO) 10.6 % (20.0-44.0); MEAN CORPUSCULAR HEMOGLOBIN 29 PG (26.0-33.0); MEAN CORPUSCULAR HGB CONC 32 g/dl (31.0-36.0); MEAN CORPUSCULAR VOLUME 90 fL (80-96); MONOCYTES # (AUTO) 0.7 /CMM (0.1-1.30); MONOCYTES % (AUTO) 3.7 % (2.0-12.0); NEUTROPHILS # (AUTO) 16.3 /CMM (1.8-8.9); NEUTROPHILS % (AUTO) 85.6 % (43.0-81.0); PLATELET COUNT (AUTO) 205 /CMM (150-450); RDW COEFFICIENT OF VARIATION 18.2 (11.5-15.0); RED BLOOD CELL COUNT(AUTO) 2.75 MIL/uL (4.5-6.0); WHITE BLOOD COUNT (AUTO) 19.1 K/uL (4.3-11.0)
[2017-09-01 07:57] LABS: ALANINE AMINOTRANSFERASE 16 U/L (12-78); ALKALINE PHOSPHATASE 324 U/L (46-116); ASPARTATE AMINOTRANSFERASE 36 U/L (15-37); BILIRUBIN,TOTAL 0.7 mg/dL (0.2-1.0); CARBON DIOXIDE 13 mmol/L (21-32); CHLORIDE 120 mmol/L (98-107); CREATININE 1.2 mg/dL (0.6-1.3); GLUCOSE 103 mg/dL (74-106); MAGNESIUM 1.8 mg/dL (1.8-2.4); PHOSPHORUS 3.2 mg/dL (2.5-4.9); POTASSIUM 3.4 mmol/L (3.5-5.1); SODIUM SERUM 151 mmol/L (136-145); TOTAL PROTEIN, SERUM 3.7 g/dL (6.4-8.2); UREA NITROGEN, BLOOD 37 mg/dL (7-18)
[2017-09-01 08:00] LABS: ALBUMIN 1.2 g/dL (3.4-5.0)
[2017-09-01 08:38] LABS: PROTHROMBIN TIME 47.8 SECS (9.5-12.7)
[2017-09-01 08:42] LABS: INR 4.53 (0.87-1.13)
--- NOTE | 2017-09-01 09:05 | NUR ---
PT BACK FROM COLONOSCOPY. ATTACHED TO MONITOR, SINUS TACH WITH HR 116, SLIGHTLY TACHYPNEIC, RESPIRATORY RATE 23-24, SP02 98% WITH MILD ACCESSORY MUSCLE USE. WILL CONTINUE TO MONITOR CLOSELY.
[2017-09-01] MEDS: POTASSIUM CHLORIDE 20 MEQ POWDER PACKET PO SCH (09:06)
[2017-09-01] MEDS: FOLIC ACID 1 MG TABLET PO SCH (09:06)
[2017-09-01] MEDS: CALCIUM CARB 600MG /VIT D 1 EACH TABLET PO SCH (09:06)
[2017-09-01] MEDS: PANTOPRAZOLE 40 MG VIAL IV SCH ×2 (09:06→17:24)
[2017-09-01] MEDS: MULTIVITAMINS,THERAGRAN 1 UDTAB TABLET PO SCH (09:06)
[2017-09-01] MEDS: cetrizine 10 MG TABLET PO SCH (09:06)
[2017-09-01] MEDS: VANCOMYCIN HCL 125 MG/2.5 ML ORAL.SUSP PO SCH ×4 (09:08→20:47)
[2017-09-01] MEDS: PROSOURCE / PROSTAT (PYXIS) 30 ML UDC PO SCH ×2 (09:08→16:56)
[2017-09-01] MEDS: POLYVINYL ALCOHOL 15 ML BOTTLE RIGHTEYE SCH ×2 (09:09→17:24)
[2017-09-01] MEDS ORDERED: Z GUARD REMEDY 2 OZ OINT TP SCH (09:30)
[2017-09-01] MEDS ORDERED: Z GUARD REMEDY 2 OZ OINT TP PRN (09:30)
[2017-09-01] MEDS ORDERED: HYDROGEL DRESSING 90 GM TUBE TP PRN (09:30)
[2017-09-01] MEDS ORDERED: HYDROGEL DRESSING 90 GM TUBE TP SCH (09:30)
[2017-09-01] MEDS ORDERED: VANCOMYCIN POST DIALYSIS 500MG IV PRN ×2 (09:30)
--- NOTE | 2017-09-01 09:34 | NUR ---
WOUND CARE CONSULT: PT PRESENTS WITH DEEP TISSUE INJURY TO SACRUM AND LEFT HEEL, PRESENT ON ADMISSION PHOTOS. SACRAL DTI IN EVOLUTION AND LEFT HEEL DTI IS INTACT. RECOMMENDATIONS MADE FOR WOUND CARE AND SKIN PROTECTION. DISCUSSED WITH NURSING STAFF. PT NOTED TO HAVE 4+ PITTING EDEMA WHICH IS GENERALIZED. PT IS INCONTINENT AND IMMOBILE. PT HAVING LIQUID STOOL. CURRENT RISSA SCORE IS 10. PT NOTED TO HAVE DUSKY COLOR TO RT FOOT, KNEES AND RT ARM. SKIN IS VERY FRAGILE AND SHINY. WILL SEE PRN. RAYA IN AGREEMENT WITH PLAN OF CARE. PT ON NATASHA ISOFLEX LOW AIRLOSS BED. Addendum: 09/01/17 at 0937 by TAMMY ABRAHAM WNDNU Amended: Links added.
--- NOTE | 2017-09-01 09:35 | NUR ---
DR CUEVAS NOTIFIED REGARDING PULMONARY CONSULT
--- NOTE | 2017-09-01 10:00 | NUR ---
REMAINS ON MONITOR, SPO2 99% WITH MILD ACCESSORY MUSCLE USE. HR 118. PRIMARY MD CALLED.
[2017-09-01] MEDS: LORAZEPAM 1 MG TABLET PO PRN (11:05)
--- NOTE | 2017-09-01 11:30 | NUR ---
STEM DRYER MAINTAINER ACTIVATED, SHOWING ON MONITOR WITH HR 180, B/P 116/52, SPO2 100% ON NRBM, NOW EXHIBITING MODERATE ACCESSORY MUSCLE USE, .
--- NOTE | 2017-09-01 11:40 | NUR ---
GLUCOSE CHECK 67, EKG COMPLETED AFIB WITH RVR HR 162. MAINTAINING B/P SBP 120, NOW RESPIRATORY RATE EFFORT MORE RAPID & SHALLOW. PT REMAINS ON DEFIBRILLATOR MONITOR /CRASH CART AT BED SIDE.
--- NOTE | 2017-09-01 11:50 | NUR ---
PT TRANSFERRED TO ICU ON MONITOR.
[2017-09-01 11:58] LABS: ABG BASE EXCESS -23.3 mmol/L; ABG OXYGEN SATURATION 69.6 % (92.0-98.5); ABG PCO2 28.6 mmHg (35.0-45.0); ABG PH 6.988 (7.350-7.450); ABG PO2 53.2 mmHg (75.0-100.0); AaDO2 487.2 mmHg; COHb 0.3 % (0.5-1.5); O2Hb 68.7 % (94.0-97.0); SITE, ABG Left Brachial; VENT MODE, BG NON-REBREATHER
[2017-09-01] MEDS ORDERED: DILTIAZEM HCL IV 125 MG in IV D5W 100 ML IV PRN (12:00)
[2017-09-01] MEDS ORDERED: DILTIAZEM HCL 50 MG IV IV ONE (12:00)
[2017-09-01] MEDS ORDERED: POTASSIUM CHLORIDE 20 MEQ POWDER PACKET NG SCH (12:00)
--- NOTE | 2017-09-01 12:00 | NUR ---
RN NOTE CALL MADE TO [phone] , TO NOTIFY THE FAMILY REGARDING TRANSFERRING PT TO ICU . THE NUMBER IS A FAX NUMBER , AND UNABLE TO CONTACT THE FAMILY .
[2017-09-01 12:23] LABS: BASOPHILS # (AUTO) 0.2 /CMM (0.0-0.2); BASOPHILS % (AUTO) 0.6 % (0.0-2.0); EOSINOPHILS # (AUTO) 0.1 /CMM (0.0-0.7); EOSINOPHILS % (AUTO) 0.2 % (0.0-6.0); HEMATOCRIT 27 % (39-51); HEMOGLOBIN 8.5 g/dL (13.5-17.5); LYMPHOCYTES # (AUTO) 3.7 /CMM (0.8-4.8); LYMPHOCYTES % (AUTO) 10.5 % (20.0-44.0); MEAN CORPUSCULAR HEMOGLOBIN 30 PG (26.0-33.0); MEAN CORPUSCULAR HGB CONC 32 g/dl (31.0-36.0); MEAN CORPUSCULAR VOLUME 94 fL (80-96); MONOCYTES # (AUTO) 0.6 /CMM (0.1-1.30); MONOCYTES % (AUTO) 1.6 % (2.0-12.0); NEUTROPHILS % (AUTO) 87.1 % (43.0-81.0); PLATELET COUNT (AUTO) 249 /CMM (150-450); RDW COEFFICIENT OF VARIATION 19.2 (11.5-15.0); RED BLOOD CELL COUNT(AUTO) 2.87 MIL/uL (4.5-6.0)
[2017-09-01 12:27] LABS: WHITE BLOOD COUNT (AUTO) 35.6 K/uL (4.3-11.0)
[2017-09-01] MEDS ORDERED: Sodium Bicarbonate 150 MEQ in IV D5W 1,000 ML IV PRN (12:30)
[2017-09-01] MEDS ORDERED: DILTIAZEM HCL 25 MG IV IV ONE (12:30)
[2017-09-01 12:48] LABS: PROTHROMBIN TIME 61.3 SECS (9.5-12.7)
[2017-09-01 13:12] LABS: INR 5.79 (0.87-1.13)
[2017-09-01 13:16] LABS: BAND % (MANUAL) 12 % (0.0-5.0); EOSINOPHILS % (MANUAL) 1 % (0-4); LYMPHOCYTES % (MANUAL) 13 % (16-48); METAMYELOCYTES % 2 % (0-0); MYELOCYTES % 1 % (0-0); NEUTROPHILS % (MANUAL) 71 (42-76)
[2017-09-01] MEDS ORDERED: IV NS 0.9% 1,000 ML BAG IV ONE (13:30)
[2017-09-01] MEDS ORDERED: IV LR 500 ML IV ONE (13:30)
[2017-09-01] MEDS: PHENYLEPHRINE 80 MG in IV D5W 250 ML IV PRN ×3 (13:34→22:10)
[2017-09-01 14:09] LABS: ALANINE AMINOTRANSFERASE 18 U/L (12-78); ALKALINE PHOSPHATASE 270 U/L (46-116); ASPARTATE AMINOTRANSFERASE 88 U/L (15-37); BILIRUBIN,TOTAL 0.6 mg/dL (0.2-1.0); CALCIUM, SERUM 6.6 mg/dL (8.5-10.1); CHLORIDE 123 mmol/L (98-107); CREATININE 1.4 mg/dL (0.6-1.3); GLUCOSE 122 mg/dL (74-106); POTASSIUM 4.3 mmol/L (3.5-5.1); SODIUM SERUM 153 mmol/L (136-145); TOTAL PROTEIN, SERUM 2.9 g/dL (6.4-8.2); UREA NITROGEN, BLOOD 35 mg/dL (7-18)
--- NOTE | 2017-09-01 14:24 | NUR ---
PRODUCTION HONING MACHINE OPERATOR; LATE ENTRY 1130: S/P DIRECTOR CRAFT CENTER. RAPID RESPONSE INITIATED. NOTED PT LABOR BREATHING SATURATIONS IN THE 80'S NON REBREATHER PLACE. ABG ORDERED. NOTE ELEVATED HEART RATE, EKG ORDERED SHOWING AFIB WITH RVR. DR. ESCALANTE NOTIFIED ORDERS GIVEN TO TRANSFER PT TO ICU FOR CARDIZEM DRIP. 1150: RECEIVED PT FROM SHALA VIA BED WITH ACLS PROTOCOL. ER MD NOTIFIED REGARDING INTUBATION PER ABG RESULTS. DR. BRYANT AT BEDSIDE. ORDERS GIVEN FOR AMIODARONE 300MG BOLUS. AND TO D/C CARDIZEM DRIP. 12:00 ER MD, DR. RO, AT BEDSIDE TO INTUBATE. PT A VERY DIFFICULT INTUBATION. MANY ATTEMPTS DOEN. PT BEING BAGGED BY RT VIA AMBU BAG. 1250 ANESTHESIOLOGIST GABY BOONE AT BEDSIDE ABLE TO INTUBATE PT VIA ETT ETT 6.5. LIP LINE24 CM. STAT CHEST XRAY ORDERED, STAT CMP WITH LACTIC ACID ORDERED AND ENTERED.
[2017-09-01] MEDS ORDERED: VASOPRESSIN INJ 50 UNIT in IV D5W 497.5 ML IV PRN (14:30)
--- NOTE | 2017-09-01 14:30 | NUR ---
REMOTE SENSING SCIENTIST; UNABLE TO OBTAIN ACCURATE B/P OR SATURATION. PT HAS GENERALIZED EDEMA WITH THIRD SPACING, WITH COOL EXTREMITIES. MD AWARE. ORDERS GIVEN FOR KARSTEN, PLACEMENT RT UNABLE TO OBTAIN ABG. DR. CUEVAS AT BEDSIDE UNSUCCESSFUL TO OBTAIN ABG.
--- NOTE | 2017-09-01 15:30 | NUR ---
MOLD PRESS OPERATOR; CARDIO DR. REILLY MADE AWARE REGARDING PT TACHYCARDIA HEART RATE OF 150. DR. REILLY AT BEDSIDE OK TO GIVE ONE LITER OF LR. ORDER ENTERED. WILL F/U WITH PHARMACY.
[2017-09-01 15:48] LABS: CARBON DIOXIDE 10 mmol/L (21-32)
[2017-09-01 16:17] LABS: BASOPHILS # (AUTO) 0.1 /CMM (0.0-0.2); BASOPHILS % (AUTO) 0.2 % (0.0-2.0); EOSINOPHILS # (AUTO) 0.1 /CMM (0.0-0.7); EOSINOPHILS % (AUTO) 0.2 % (0.0-6.0); HEMATOCRIT 26 % (39-51); HEMOGLOBIN 8.2 g/dL (13.5-17.5); LYMPHOCYTES # (AUTO) 2.8 /CMM (0.8-4.8); LYMPHOCYTES % (AUTO) 8.2 % (20.0-44.0); MEAN CORPUSCULAR HEMOGLOBIN 29 PG (26.0-33.0); MEAN CORPUSCULAR HGB CONC 31 g/dl (31.0-36.0); MEAN CORPUSCULAR VOLUME 93 fL (80-96); MONOCYTES # (AUTO) 0.6 /CMM (0.1-1.30); MONOCYTES % (AUTO) 1.8 % (2.0-12.0); NEUTROPHILS % (AUTO) 89.6 % (43.0-81.0); PLATELET COUNT (AUTO) 252 /CMM (150-450); RDW COEFFICIENT OF VARIATION 19.1 (11.5-15.0)
[2017-09-01 16:20] LABS: WHITE BLOOD COUNT (AUTO) 34.6 K/uL (4.3-11.0)
[2017-09-01] MEDS ORDERED: IV LR 1000 ML 1,000 ML IV ONE (16:30)
[2017-09-01] MEDS: ALBUMIN 25% 25 GM in PREMIX 1 EA IV SCH ×2 (16:56→20:46)
[2017-09-01 17:54] LABS: IRON, SERUM 45 ug/dl (50-175); TOTAL IRON BINDING CAPACITY 37 ug/dl (250-450)
[2017-09-01 17:55] LABS: BILIRUBIN,DIRECT 0.3 mg/dL (0.0-0.2)
[2017-09-01 18:03] LABS: MAGNESIUM 1.9 mg/dL (1.8-2.4); PHOSPHORUS 5.9 mg/dL (2.5-4.9)
--- NOTE | 2017-09-01 18:29 | NUR ---
PROFESSOR OF FRENCH NOTE 1600: Noted patient with temp 94.5, placed on Gustavo hugger. Placed temp probe orally. Tried placing OGT or NGT but unsuccessful, MD aware. 1819: Dr. Kenney aware for lactic acid 8.9, aware max on Vaso and Ephraim, with order to start on NS @ 100. Aware for the labs today. Dr. Jesus aware unable to place Bonnie at this time, unable to collect ABG.
[2017-09-01] MEDS ORDERED: IV NS 0.9% 1,000 ML IV PRN (18:30)
[2017-09-01] MEDS ORDERED: AMIODARONE 150 MG/3 ML VIAL IV ONE (18:37)
[2017-09-01] MEDS ORDERED: SODIUM BICARBONATE SYR 50 MEQ/50 ML DISP.SYRIN IV ONE (18:37)
[2017-09-01] MEDS ORDERED: EPINEPHRINE (1:10,000) SYRINGE 1 MG/10 ML DISP.SYRIN IVP ONE (18:37)
[2017-09-01] MEDS ORDERED: Sodium Bicarbonate 150 MEQ in IV D5W 1,000 ML IV ONE (20:00)
[2017-09-01] MEDS ORDERED: Sodium Bicarbonate 150 MEQ in IV NS 0.9% 1,000 ML IV ONE (20:00)
--- NOTE | 2017-09-01 20:00 | NUR ---
RADIO INSTALLER NOTES RECEIVED PT IN CRITICAL CONDITION AND UNSTABLE. PT IN COMATOSE STATE. NO GAG REFLEX, NO WITHDRAWAL TO PAINFUL STIMULI. TELE READS ST AT 154 BPM. ON VENT VIA ETT AT ORDERED SETTINGS, TOLERATING POORLY, SPO2 90% WITH FIO2 100%. BURGOS CATH IN PLACE, DRAINING TO DARK TEA COLORED URINE. RIGHT FEM TLC, RUNNING NS AT 100ML/HR, NEIDA AT 300 MCG/MIN, VASOPRESSIN AT 0.04 UNITS/MIN. LEJ 18G IV IN PLACE, SALINE LOCKED. ORDERS PRESENT FOR FFP X3 AND BICARB DRIP X1. PT FLAT IN SUPINE POSITION. UPPER AND LOWER EXTREMITIES WITH POOR SKIN INTEGRITY AND WEEPING.
--- NOTE | 2017-09-01 20:01 | NUR ---
RUBBER MOULDING MACHINE OPERATOR NOTES PT'S SBP DROPPED TO THE 60s. CONTACTED DR REILLY AND MADE AWARE. NEW ORDER RECEIVED TO INITIATE LEVOPHED DRIP AND TITRATE TO MAINTAIN SBP >90.
[2017-09-01 20:18] LABS: FERRITIN 2813 ng/mL (8-388)
[2017-09-01] MEDS: NOREPINEPHRINE 8 MG in IV D5W 500 ML IV PRN (20:25)
--- NOTE | 2017-09-01 20:31 | NUR ---
PT RECEIVED INTUBATED WITH 6.5 ETT SECURED AT 24CM AT THE LIP. TOLERATING VENT SETTINGS. VENT ALARMS SET AND AUDIBLE. AMBU BAG AT BEDSIDE. VENT PLUGGED INTO RED OUTLET. WILL CONTINUE TO MONITOR. Addendum: 09/01/17 at 2031 by CASTILLO KNOTT RT Amended: Links added.
[2017-09-01 21:02] LABS: CHOLESTEROL 46 mg/dL (<200); HDL CHOLESTEROL < 10 mg/dL (40-60); LDL 16 mg/dL (0-99); THYROID STIMULATING HORMONE 1.294 uIU/mL (0.358-3.74); TRIGLYCERIDES 101 mg/dL (30-150)
[2017-09-01] MEDS: LATANOPROST EYE DROP 0.005% 2.5 ML BOTTLE EACHEYE SCH (21:28)
[2017-09-01] MEDS: DESIPRAMINE HCL 10 MG TABLET PO SCH (21:29)
--- NOTE | 2017-09-01 22:00 | NUR ---
OFFICE COORDINATOR RECEPTIONIST NOTES DR REILLY CALL TO GET STATUS UPDATE ON PT. MADE AWARE OF PT'S ELEVATED HR PEAKING TO 220 BPM AND BLOOD PRESSURE REMAINS LOW IN THE 60s. NO NEW ORDERS RECEIVED.
[2017-09-02] VITALS (15 sets, daily range): BP systolic 32–88; BP diastolic 13–34
--- NOTE | 2017-09-02 | NUR ---
BOOK TRIMMER NOTES PT IS IN AN EXTREMELY CRITICAL STATE. SBP REMAINS LOW IN THE 50s. HEART RATE RANGES FROM 110-180 BPM WITH RHYTHM CHANGES AND ECTOPIES. PT STILL HAS VERY WEAK PULSES AT EXTREMITIES X4, CHECKED WITH DOPPLER. PT REMAINS UNRESPONSIVE TO ANY STIMULATION. PULSE OX UNABLE TO GET ACCURATE READINGS. TEMP PROBE UNABLE TO MEASURE BODY TEMP, PT IS COLD TO TOUCH. AMBAR HUGGER REMAINS IN PLACE.
[2017-09-02] MEDS: METRONIDAZOLE 500MG/ NS 100ML 500 MG in PREMIX 1 EA IV SCH (00:31)
[2017-09-02] MEDS: NOREPINEPHRINE 8 MG in IV D5W 500 ML IV PRN (00:32)
[2017-09-02] MEDS: ALBUMIN 25% 25 GM in PREMIX 1 EA IV SCH (01:02)
[2017-09-02] MEDS ORDERED: PHENYLEPHRINE 10 MG/ML VIAL ONE (02:03)
[2017-09-02] MEDS: PHENYLEPHRINE 80 MG in IV D5W 250 ML IV PRN (02:38)
[2017-09-02] MEDS ORDERED: ATROPINE SULFATE 1 MG/10 ML DISP.SYRIN IV ONE (04:06)
[2017-09-02] MEDS ORDERED: ROCURONIUM BROMIDE 50 MG/5 ML IV ONE (04:06)
[2017-09-02] MEDS ORDERED: ETOMIDATE 2 MG/ML VIAL IV ONE (04:06)
[2017-09-02] MEDS ORDERED: CALCIUM CHLORIDE 1,000 MG/10 ML DISP.SYRIN IV ONE (04:06)
[2017-09-02] MEDS ORDERED: SUCCINYLCHOLINE CHLORIDE 20 MG/ML VIAL IV ONE (04:06)
[2017-09-02] MEDS ORDERED: SODIUM BICARBONATE SYR 50 MEQ/50 ML DISP.SYRIN IV ONE (04:06)
--- NOTE | 2017-09-02 04:09 | NUR ---
DISASTER RECOVERY CONSULTANT NOTES 0357 PT'S HR DROPPED TO 40s. NO PULSES PALPABLE. NO PULSES PRESENT WITH DOPPLER. PT IN PEA. CODE BLUE INITIATED. CHEST COMPRESSIONS INITIATED. PT ON THREE CARDIAC PRESSORS AT MAX RATES. 0407 NO PULSES ASSESSED, IDIOVENTRICULAR PER DR RODRIGUEZ. PT PRONOUNCED AT [address] RODRIGUEZ.
[2017-09-02 04:15] LABS: BASOPHILS % (AUTO) 0.1 % (0.0-2.0); EOSINOPHILS # (AUTO) 0.1 /CMM (0.0-0.7); EOSINOPHILS % (AUTO) 0.4 % (0.0-6.0); LYMPHOCYTES # (AUTO) 4.5 /CMM (0.8-4.8); LYMPHOCYTES % (AUTO) 16.1 % (20.0-44.0); MEAN CORPUSCULAR HEMOGLOBIN 30 PG (26.0-33.0); MEAN CORPUSCULAR HGB CONC 30 g/dl (31.0-36.0); MEAN CORPUSCULAR VOLUME 99 fL (80-96); MONOCYTES # (AUTO) 0.3 /CMM (0.1-1.30); NEUTROPHILS # (AUTO) 23.2 /CMM (1.8-8.9); NEUTROPHILS % (AUTO) 82.4 % (43.0-81.0); PLATELET COUNT (AUTO) 55 /CMM (150-450); WHITE BLOOD COUNT (AUTO) 28.1 K/uL (4.3-11.0)
[2017-09-02 04:17] LABS: RED BLOOD CELL COUNT(AUTO) 1.18 MIL/uL (4.5-6.0)
[2017-09-02 04:19] LABS: HEMATOCRIT 12 % (39-51); HEMOGLOBIN 3.5 g/dL (13.5-17.5)
--- NOTE | 2017-09-02 04:20 | NUR ---
DIVISION TRAFFIC SUPERINTENDENT NOTES 0420 RECORD OF PAPER COMPLETED WITH CALLS MADE TO ADMITTING, MUD CAR WORKER, ATTENDING MD AND FAMILY (NO ANSWER, MULTIPLE ATTEMPTS, LEFT VOICEMAIL). CODE BLUE SHEET COMPLETED AND SIGNED BY DR RODRIGUEZ. 0435 POST MORTEM CARE RENDERED, BELONGINGS ACCOUNTED (CELLPHONE ACCOUNTED). SECURITY CALLED TO TRANSPORT PT TO [facility]. 0450 PT TRANSPORTED TO [facility] WITH SECURITY AND RN.
[2017-09-02 04:27] LABS: TROPONIN I 0.266 ng/mL (0.00-0.056)
[2017-09-02 04:29] LABS: ALANINE AMINOTRANSFERASE 249 U/L (12-78); ALBUMIN 2.3 g/dL (3.4-5.0); ALKALINE PHOSPHATASE 130 U/L (46-116); CALCIUM, SERUM 6.4 mg/dL (8.5-10.1); CHLORIDE 109 mmol/L (98-107); CREATININE 1.5 mg/dL (0.6-1.3); GLUCOSE 315 mg/dL (74-106); SODIUM SERUM 139 mmol/L (136-145); TOTAL PROTEIN, SERUM 3.8 g/dL (6.4-8.2); UREA NITROGEN, BLOOD 33 mg/dL (7-18)
[2017-09-02 04:38] LABS: CARBON DIOXIDE 9 mmol/L (21-32); POTASSIUM 6.5 mmol/L (3.5-5.1)
[2017-09-02 04:39] LABS: PHOSPHORUS 8.7 mg/dL (2.5-4.9)
[2017-09-02 04:52] LABS: ASPARTATE AMINOTRANSFERASE 2362 U/L (15-37)
[2017-09-02 05:52] LABS: BAND % (MANUAL) 22 % (0.0-5.0); LYMPHOCYTES % (MANUAL) 19 % (16-48); METAMYELOCYTES % 5 % (0-0); MYELOCYTES % 5 % (0-0); NEUTROPHILS % (MANUAL) 49 (42-76)
[2017-09-02] MEDS ORDERED: TAMSULOSIN 0.4 MG CAP.SR.24H PO SCH (09:00)
== END 2017-09-02 04:07 | disposition expired | DRG 871 ==
LOC: ER 16:49 → TELE-TD 20:53 → TELE1 08-29 09:09 → ICU 09-01 11:46
PROVIDERS: ADMIT Internal Medicine Nephrology; ATTEND Internal Medicine Nephrology
PROC: 06HM33Z Insertion of Infusion Device into Right Femoral Vein, Percutaneous Approach (ICD-10-PCS; 2017-08-29)
PROC: B54BZZA Ultrasonography of Right Lower Extremity Veins, Guidance (ICD-10-PCS; 2017-08-29)
PROC: 0BH18EZ Insertion of Endotracheal Airway into Trachea, Via Natural or Artificial Opening Endoscopic (ICD-10-PCS; 2017-09-01)
PROC: 30233K1 Transfusion of Nonautologous Frozen Plasma into Peripheral Vein, Percutaneous Approach (ICD-10-PCS; 2017-09-01)
PROC: 0DBE8ZX Excision of Large Intestine, Via Natural or Artificial Opening Endoscopic, Diagnostic (ICD-10-PCS; 2017-09-01)
PROC: 5A1935Z Respiratory Ventilation, Less than 24 Consecutive Hours (ICD-10-PCS; principal; 2017-09-01 09:00)
PROC: 5A12012 Performance of Cardiac Output, Single, Manual (ICD-10-PCS; 2017-09-02)
DX: A41.9 Sepsis, unspecified organism (principal); R65.21 Severe sepsis with septic shock; J96.01 Acute respiratory failure with hypoxia; E43 Unspecified severe protein-calorie malnutrition; N17.9 Acute kidney failure, unspecified; A04.72 Enterocolitis due to Clostridium difficile, not specified as recurrent; J90 Pleural effusion, not elsewhere classified; D68.9 Coagulation defect, unspecified; K92.2 Gastrointestinal hemorrhage, unspecified; E87.2 Acidosis; E87.1 Hypo-osmolality and hyponatremia; L03.116 Cellulitis of left lower limb; K21.9 Gastro-esophageal reflux disease without esophagitis; I48.91 Unspecified atrial fibrillation; M06.9 Rheumatoid arthritis, unspecified; K52.9 Noninfective gastroenteritis and colitis, unspecified; M19.90 Unspecified osteoarthritis, unspecified site; Z68.20 Body mass index [BMI] 20.0-20.9, adult; Z88.0 Allergy status to penicillin; R33.9 Retention of urine, unspecified; D64.9 Anemia, unspecified; Z79.82 Long term (current) use of aspirin
CPT/HCPCS: 31720; 36415; 36569; 36600; 71010-TC; 80048-TC; 80053-TC; 80061-TC; 80076-TC; 82248-TC; 82306; 82728-TC; 82962-TC; 83540-TC; 83605-TC; 83735-TC; 84100-TC; 84439-TC; 84443-TC; 84484-TC; 85025-TC; 85027-TC; 85610-TC; 85730-TC; 86850-TC; 87040-TC; 87045-TC; 87081-TC; 87177; 87209; 88305-TC; 89055; 93307-TC; 94003-TC; 94762-TC; A4216; A4606; A6248; A6402; C1751; C9113; J0171; J0282; J0330; J0461; J1956; J2270; J2370; J2704; J3475; J3490; J7030; J7040; J7050; J7060; J7070; J7120; P9017-BL; P9047; Z7610